=== PATIENT | male | born 1995 | race Caucasian/White ===

== ENCOUNTER 2018-11-22 16:55 | Emergency (ER) | payer OTHER, BC ==
[2018-11-22 17:04] VITALS: BP 133/91
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
[2018-11-22] MEDS ORDERED: OXYCODONE/APAP 5/325MG PREPACK#4 BTL TAKEHOME ONE (17:51)
== END 2018-11-22 18:35 | disposition home or self-care (01) ==
DX: S60.512A Abrasion of left hand, initial encounter (principal); M25.552 Pain in left hip; V49.9XXA Car occupant (driver) (passenger) injured in unspecified traffic accident, initial encounter; Y92.410 Unspecified street and highway as the place of occurrence of the external cause; Y93.9 Activity, unspecified; Y99.9 Unspecified external cause status